=== PATIENT | male | born 1930 | race Caucasian/White ===

== ENCOUNTER → 2017-04-16 | Outpatient (CLI) | payer OTHER ==
[~2017-04-16] MED LIST: CHOL20002 PO; CLOP75TA28 PO; DOC100C PO; LISI10TA6 PO; METO-169 PO; NIAC500T71 PO; PIOG15TA46 OR; SIMV-8 PO
[2017-04-16 08:07] LABS: Urine Bilirubin Negative (Negative); Urine Color Yellow (Yellow); Urine Glucose Normal (Normal); Urine Ketone Negative (Negative); Urine Nitrite Negative (Negative); Urine RBC 54 /hpf (0 - 3); Urine Squamous Epithelial Cell FEW /hpf (<5); Urine Urobilinogen Normal (Negative); Urine pH 5.5 (5.0-8.0)
[2017-04-16 08:08] LABS: Basophils # (auto) 0.1 uL; Basophils % (auto) 0.7 % (0.0-2.0); CONDITION Y; Eosinophils # (auto) 0.3 uL; Eosinophils % (auto) 3.2 % (0.0-7.0); Hematocrit 44.1 % (41.0-53.0); Hemoglobin 15.2 g/dL (13.5-17.5); Lymphocytes # (auto) 2.3 uL; Lymphocytes % (auto) 28.6 % (10.0-50.0); Mean Corpuscular Hemoglobin 31.5 pg (28.0-32.0); Mean Corpuscular Hgb Conc. 34.5 g/dL (32.0-36.0); Mean Corpuscular Volume 91.3 fL (80.0-100.0); Mean Platelet Volume 8.9 fL (7.4-10.4); Monocytes # (auto) 0.7 uL; Monocytes % (auto) 8.8 % (0.0-12.0); Neutrophils # (auto) 4.8 uL; Neutrophils % (auto) 58.7 % (37.0-80.0); Platelet Count (auto) 288 10^3/uL (140-450); Red Cell Distribution Width 14.2 % (11.6-16.0); Urine Blood 1+ /uL (Negative); White Blood Cell 8.1 10^3/uL (4.4-10.8)
[2017-04-16 08:39] LABS: Albumin 3.6 g/dL (3.4-5.0); Calcium 8.8 mg/dL (8.5-10.1); Potassium 4.1 mmol/L (3.5-5.1)
[2017-04-16 08:43] LABS: BUN/Creatinine Ratio 21.6; Bilirubin, Total 0.8 mg/dL (0.2-1.0)
[2017-04-16 08:44] LABS: Total Protein 7.7 g/dL (6.4-8.2)
== END | disposition home or self-care (01) ==
LOC: LAB 07:30
PROVIDERS: ATTEND Family Medicine
DX: E11.8 Type 2 diabetes mellitus with unspecified complications (principal)
CPT/HCPCS: 36415; 80053; 80061; 81001; 82043; 83036; 85025

== ENCOUNTER → 2018-01-19 | Outpatient (CLI) | payer OTHER ==
[~2018-01-19] VITALS: Ht 170.2 cm; Wt 93.9 kg
[~2018-01-19] MED LIST changes: +ADENOSINE 79 MG in GIVE UN-DILUTED 0 ML IV STA; +OPTISON 3ml Vial for INJ IV ONE
[2018-01-19 10:45] VITALS: BP 156/78
== END | disposition home or self-care (01) ==
LOC: XY 08:43
PROVIDERS: ATTEND Internal Medicine
DX: I25.10 Atherosclerotic heart disease of native coronary artery without angina pectoris (principal); E11.22 Type 2 diabetes mellitus with diabetic chronic kidney disease; I12.9 Hypertensive chronic kidney disease with stage 1 through stage 4 chronic kidney disease, or unspecified chronic kidney disease; N18.2 Chronic kidney disease, stage 2 (mild); E78.5 Hyperlipidemia, unspecified
CPT/HCPCS: 93017; 93306; J0153; Q9956

== ENCOUNTER → 2018-02-03 | Outpatient (CLI) | payer OTHER ==
[~2018-02-03] MED LIST changes: -ADENOSINE 79 MG in GIVE UN-DILUTED 0 ML IV STA; -OPTISON 3ml Vial for INJ IV ONE
[2018-02-03 08:11] LABS: Basophils # (auto) 0.1 uL; Basophils % (auto) 0.7 % (0.0-2.0); Eosinophils # (auto) 0.2 uL; Eosinophils % (auto) 2.7 % (0.0-7.0); Hematocrit 44.7 % (41.0-53.0); Hemoglobin 14.9 g/dL (13.5-17.5); Lymphocytes # (auto) 2.3 uL; Lymphocytes % (auto) 27.6 % (10.0-50.0); Mean Corpuscular Hemoglobin 30.9 pg (28.0-32.0); Mean Corpuscular Hgb Conc. 33.4 g/dL (32.0-36.0); Mean Corpuscular Volume 92.6 fL (80.0-100.0); Monocytes # (auto) 0.8 uL; Monocytes % (auto) 9.4 % (0.0-12.0); Neutrophils % (auto) 59.6 % (37.0-80.0); Platelet Count (auto) 267 10^3/uL (140-450); Red Blood Cells 4.82 10^6/uL (4.5-5.90); Red Cell Distribution Width 13.6 % (11.8-14.3); White Blood Cell 8.4 10^3/uL (4.4-10.8)
[2018-02-03 08:22] LABS: Urine Bacteria FEW /hpf (None Seen); Urine Blood TRACE /uL (Negative); Urine Mucus FEW (None Seen); Urine Specific Gravity 1.013 (1.001-1.035); Urine WBC 17 /hpf (0 - 3)
[2018-02-03 08:32] LABS: Albumin 3.6 g/dL (3.4-5.0); BUN/Creatinine Ratio 16.5; Bilirubin, Total 0.6 mg/dL (0.2-1.0); CRP High Sensitivity 0.59 mg/dL (< 0.3); Calcium 9.1 mg/dL (8.5-10.1); Potassium 4.4 mmol/L (3.5-5.1); Total Protein 7.8 g/dL (6.4-8.2)
[2018-02-03 08:37] LABS: Free T4 (Free Thyroxine) 1.16 ng/dL (0.89-1.76); Prostate Specific Antigen 0.21 ng/mL (0.0-4.0); T3 Total 1.18 ng/mL (0.60-1.81)
== END | disposition home or self-care (01) ==
LOC: LAB 07:16
PROVIDERS: ATTEND Internal Medicine
DX: I25.10 Atherosclerotic heart disease of native coronary artery without angina pectoris (principal); I12.9 Hypertensive chronic kidney disease with stage 1 through stage 4 chronic kidney disease, or unspecified chronic kidney disease; E11.22 Type 2 diabetes mellitus with diabetic chronic kidney disease; N18.2 Chronic kidney disease, stage 2 (mild); E78.5 Hyperlipidemia, unspecified
CPT/HCPCS: 36415; 80053; 80061; 81001; 82306; 82607; 83036; 84153; 84403; 84439; 84443; 84480; 85025; 86141

== ENCOUNTER → 2018-03-16 | Outpatient (CLI) | payer OTHER | END | disposition home or self-care (01) | LOC: XY 09:28 | PROVIDERS: ATTEND Internal Medicine | DX: I10 Essential (primary) hypertension (principal); I12.9 Hypertensive chronic kidney disease with stage 1 through stage 4 chronic kidney disease, or unspecified chronic kidney disease; E11.22 Type 2 diabetes mellitus with diabetic chronic kidney disease; N18.2 Chronic kidney disease, stage 2 (mild) | CPT/HCPCS: 93886 ==

== ENCOUNTER → 2019-01-04 | Outpatient (CLI) | payer OTHER ==
[~2019-01-04] MED LIST changes: -PIOG15TA46 OR; +PIOG1TAB36 OR
[2019-01-04 08:01] LABS: Basophils # (auto) 0.1 uL; Basophils % (auto) 1.2 % (0.0-2.0); Eosinophils # (auto) 0.2 uL; Eosinophils % (auto) 2.3 % (0.0-7.0); Hematocrit 45.8 % (41.0-53.0); Hemoglobin 15.6 g/dL (13.5-17.5); Lymphocytes # (auto) 2.4 uL; Lymphocytes % (auto) 29.6 % (10.0-50.0); Mean Corpuscular Hemoglobin 31.6 pg (28.0-32.0); Mean Corpuscular Hgb Conc. 34.1 g/dL (32.0-36.0); Mean Corpuscular Volume 92.6 fL (80.0-100.0); Monocytes # (auto) 0.7 uL; Monocytes % (auto) 8.6 % (0.0-12.0); Neutrophils # (auto) 4.8 uL; Neutrophils % (auto) 58.3 % (37.0-80.0); Nucleated Red Blood Cells % 0.1 %; Platelet Count (auto) 255 10^3/uL (140-450); Red Blood Cells 4.95 10^6/uL (4.5-5.90); Red Cell Distribution Width 13.2 % (11.8-14.3); White Blood Cell 8.2 10^3/uL (4.4-10.8)
[2019-01-04 08:13] LABS: Urine Bacteria FEW /hpf (None Seen); Urine Blood 2+ /uL (Negative); Urine Specific Gravity 1.017 (1.001-1.035); Urine WBC 741 /hpf (0 - 3); Urine WBC Clumps PRESENT /hpf (None Seen)
[2019-01-04 08:34] LABS: Albumin 3.8 g/dL (3.4-5.0); Potassium 4.1 mmol/L (3.5-5.1)
[2019-01-04 08:39] LABS: Bilirubin, Total 0.7 mg/dL (0.2-1.0); Total Protein 8.1 g/dL (6.4-8.2)
== END | disposition home or self-care (01) ==
LOC: LAB 07:20
PROVIDERS: ATTEND Physician Assistant
DX: I13.0 Hypertensive heart and chronic kidney disease with heart failure and stage 1 through stage 4 chronic kidney disease, or unspecified chronic kidney disease (principal); E11.22 Type 2 diabetes mellitus with diabetic chronic kidney disease; N18.2 Chronic kidney disease, stage 2 (mild); I50.9 Heart failure, unspecified; E11.620 Type 2 diabetes mellitus with diabetic dermatitis; E78.5 Hyperlipidemia, unspecified
CPT/HCPCS: 36415; 80053; 80061; 81001; 83036; 85025

== ENCOUNTER → 2019-05-11 | Outpatient (CLI) | payer OTHER ==
[2019-05-11 08:56] LABS: Cholesterol 152 mg/dL (< 200); HDL Cholesterol 31 mg/dL (40-59); LDL Cholesterol 75 mg/dL (< 100); Triglycerides 367 mg/dL (< 150)
== END | disposition home or self-care (01) ==
LOC: LAB 07:23
PROVIDERS: ATTEND Physician Assistant
DX: Z12.5 Encounter for screening for malignant neoplasm of prostate (principal); E78.1 Pure hyperglyceridemia; E78.5 Hyperlipidemia, unspecified
CPT/HCPCS: 36415; 80061; 84153

== ENCOUNTER → 2019-11-16 | Outpatient (CLI) | payer OTHER ==
[2019-11-16 08:28] LABS: Basophils # (auto) 0.1 uL; Basophils % (auto) 0.8 % (0.0-2.0); Eosinophils # (auto) 0.3 uL; Eosinophils % (auto) 4.3 % (0.0-7.0); Hematocrit 44.5 % (41.0-53.0); Hemoglobin 15.2 g/dL (13.5-17.5); Lymphocytes # (auto) 2.3 uL; Lymphocytes % (auto) 29.5 % (10.0-50.0); Mean Corpuscular Hemoglobin 31.6 pg (28.0-32.0); Mean Corpuscular Hgb Conc. 34.1 g/dL (32.0-36.0); Mean Corpuscular Volume 92.8 fL (80.0-100.0); Monocytes # (auto) 0.7 uL; Monocytes % (auto) 9.1 % (0.0-12.0); Neutrophils # (auto) 4.4 uL; Neutrophils % (auto) 56.3 % (37.0-80.0); Platelet Count (auto) 303 10^3/uL (140-450); Red Cell Distribution Width 13.6 % (11.8-14.3); White Blood Cell 7.8 10^3/uL (4.4-10.8)
[2019-11-16 09:00] LABS: Potassium 4.2 mmol/L (3.5-5.1)
[2019-11-16 09:12] LABS: Albumin 3.6 g/dL (3.4-5.0); BUN/Creatinine Ratio 15.3; Bilirubin, Total 0.6 mg/dL (0.2-1.0); Calcium 9.3 mg/dL (8.5-10.1); Total Protein 8.2 g/dL (6.4-8.2)
[2019-11-16 11:54] LABS: Urine Bacteria FEW /hpf (None Seen); Urine Blood 1+ /uL (Negative); Urine Budding Yeast OCCASIONAL /hpf (None Seen); Urine Mucus FEW (None Seen); Urine WBC 1880 /hpf (0 - 3); Urine WBC Clumps PRESENT /hpf (None Seen)
== END | disposition home or self-care (01) ==
LOC: LAB 07:55
PROVIDERS: ATTEND Physician Assistant
DX: E11.9 Type 2 diabetes mellitus without complications (principal); E78.5 Hyperlipidemia, unspecified; E78.1 Pure hyperglyceridemia; I13.0 Hypertensive heart and chronic kidney disease with heart failure and stage 1 through stage 4 chronic kidney disease, or unspecified chronic kidney disease; I50.9 Heart failure, unspecified
CPT/HCPCS: 36415; 80053; 80061; 81001; 83036; 85025

== ENCOUNTER 2020-01-03 09:36 | Emergency (ER) | payer OTHER ==
[~2020-01-03] VITALS: Ht 180.3 cm; Wt 95.3 kg
[2020-01-03 10:10] VITALS: BP 148/79
[2020-01-03] MEDS ORDERED: cefTRIAXone SOD 1,000 MG VL IM ONE (11:30)
== END 2020-01-03 11:36 | disposition home or self-care (01) ==
LOC: EDBD 09:36 → ER 09:36
DX: H10.9 Unspecified conjunctivitis (principal); H00.031 Abscess of right upper eyelid; E11.9 Type 2 diabetes mellitus without complications; I10 Essential (primary) hypertension
CPT/HCPCS: 70486; 96372; 99284; J0696

== ENCOUNTER → 2020-11-23 | Outpatient (CLI) | payer OTHER ==
[~2020-11-23] MED LIST changes: +LISI-648 PO; -LISI10TA6 PO
[2020-11-23 08:01] LABS: Basophils # (auto) 0 10 ^3/uL (0-0.2); Basophils % (auto) 0.6 % (0.0-2.0); Eosinophils # (auto) 0.1 10 ^3/uL (0-0.8); Eosinophils % (auto) 1.5 % (0.0-7.0); Hematocrit 44.6 % (41.0-53.0); Lymphocytes # (auto) 1.7 10 ^3/uL (0.4-5.4); Lymphocytes % (auto) 21.6 % (10.0-50.0); Mean Corpuscular Hemoglobin 31.1 pg (28.0-32.0); Mean Corpuscular Hgb Conc. 33.6 g/dL (32.0-36.0); Mean Corpuscular Volume 92.4 fL (80.0-100.0); Monocytes # (auto) 0.6 10 ^3/uL (0-1.3); Neutrophils # (auto) 5.4 10 ^3/uL (1.6-8.6); Neutrophils % (auto) 68.3 % (37.0-80.0); Nucleated Red Blood Cells % 0.2 %; Platelet Count (auto) 336 10^3/uL (140-450); Red Blood Cells 4.83 10^6/uL (4.5-5.90); Red Cell Distribution Width 13.9 % (11.8-14.3); White Blood Cell 7.9 10^3/uL (4.4-10.8)
[2020-11-23 08:22] LABS: Potassium 3.9 mmol/L (3.5-5.1)
[2020-11-23 08:35] LABS: Albumin 3.6 g/dL (3.4-5.0); BUN/Creatinine Ratio 18.9; Bilirubin, Total 0.6 mg/dL (0.2-1.0); Calcium 9.5 mg/dL (8.5-10.1); Total Protein 8.3 g/dL (6.4-8.2)
== END | disposition home or self-care (01) ==
LOC: LAB 07:25
PROVIDERS: ATTEND Physician Assistant
DX: I13.0 Hypertensive heart and chronic kidney disease with heart failure and stage 1 through stage 4 chronic kidney disease, or unspecified chronic kidney disease (principal); I50.9 Heart failure, unspecified; E11.22 Type 2 diabetes mellitus with diabetic chronic kidney disease; N18.2 Chronic kidney disease, stage 2 (mild); E11.620 Type 2 diabetes mellitus with diabetic dermatitis; E78.5 Hyperlipidemia, unspecified; N40.0 Benign prostatic hyperplasia without lower urinary tract symptoms
CPT/HCPCS: 36415; 80053; 80061; 84153; 85025

== ENCOUNTER → 2021-04-24 | Outpatient (CLI) | payer OTHER ==
[~2021-04-24] MED LIST changes: -LISI-648 PO; +LISI-716 PO; -METO-169 PO; +METO-289 PO
[2021-04-24 08:03] LABS: Potassium 4.1 mmol/L (3.5-5.1)
[2021-04-24 08:11] LABS: Albumin 3.5 g/dL (3.4-5.0); BUN/Creatinine Ratio 18.3; Bilirubin, Total 0.7 mg/dL (0.2-1.0); Calcium 8.8 mg/dL (8.5-10.1); Total Protein 7.8 g/dL (6.4-8.2)
== END | disposition home or self-care (01) ==
LOC: LAB 07:09
PROVIDERS: ATTEND Internal Medicine
DX: E78.5 Hyperlipidemia, unspecified (principal)
CPT/HCPCS: 36415; 80053; 80061

== ENCOUNTER → 2021-05-01 | Outpatient (CLI) | payer OTHER | END | disposition home or self-care (01) | LOC: XYW 09:39 | PROVIDERS: ATTEND Internal Medicine | DX: I51.7 Cardiomegaly (principal); I31.3 Pericardial effusion (noninflammatory); I25.10 Atherosclerotic heart disease of native coronary artery without angina pectoris | CPT/HCPCS: 93306 ==

== ENCOUNTER 2021-06-05 08:37 | Inpatient (IN) | payer OTHER ==
[~2021-06-05] VITALS: Ht 172.7 cm; Wt 89.4 kg
[2021-06-05] MEDS ORDERED: SODIUM CHLORIDE 0.9% 1,000 ML IV ONE (10:00)
[2021-06-05 10:26] LABS: Basophils # (auto) 0 10 ^3/uL (0-0.2); Basophils % (auto) 0.3 % (0.0-2.0); Eosinophils # (auto) 0 10 ^3/uL (0-0.8); Eosinophils % (auto) 0.2 % (0.0-7.0); Hematocrit 45.1 % (41.0-53.0); Hemoglobin 15.5 g/dL (13.5-17.5); Lymphocytes # (auto) 1.5 10 ^3/uL (0.4-5.4); Lymphocytes % (auto) 10.8 % (10.0-50.0); Mean Corpuscular Hgb Conc. 34.4 g/dL (32.0-36.0); Mean Corpuscular Volume 93.3 fL (80.0-100.0); Monocytes # (auto) 0.8 10 ^3/uL (0-1.3); Monocytes % (auto) 5.7 % (0.0-12.0); Neutrophils # (auto) 11.5 10 ^3/uL (1.6-8.6); Nucleated Red Blood Cells % 0.1 %; Red Blood Cells 4.84 10^6/uL (4.5-5.90); Red Cell Distribution Width 13.7 % (11.8-14.3); White Blood Cell 13.8 10^3/uL (4.4-10.8)
[2021-06-05 10:31] LABS: INR 1.04 (0.9-1.15); Partial Thromboplastin Time 28.8 sec (23.6-33.0)
[2021-06-05 10:42] LABS: Albumin 3.4 g/dL (3.4-5.0); Calcium 8.8 mg/dL (8.5-10.1); Magnesium 2.1 mg/dL (1.6-2.6); Potassium 4.6 mmol/L (3.5-5.1)
[2021-06-05 10:50] LABS: BUN/Creatinine Ratio 18.8; Total Protein 7.8 g/dL (6.4-8.2)
[2021-06-05] MEDS ORDERED: IPRATROPIUM BROM 0.5 MG/2.5ML INH SOL NEB ONE (13:45)
[2021-06-05] MEDS ORDERED: SPIRONOLACTONE 25 MG TAB PO ONE (13:45)
[2021-06-05] MEDS ORDERED: FUROSEMIDE 40 MG/4 ML VIAL IV ONE ×2 (13:45→20:15)
[2021-06-05] MEDS ORDERED: ALBUTEROL SULF 2.5 MG/0.5ML(0.5%) NEB SOLN NEB ONE (13:45)
[2021-06-05] MEDS ORDERED: HYDROcodone-ACET 5/325MG TAB PO PRN (17:30)
[2021-06-05] MEDS ORDERED: DEXTROSE (50%) 50ML SYRG IV PRN (17:30)
[2021-06-05] MEDS ORDERED: NITROGLYCERIN 0.4 MG SL TAB SL PRN (17:30)
[2021-06-05] MEDS ORDERED: MORPHINE SULFATE INJECTION 2 MG/ML SYRG IV PRN ×2 (17:30)
[2021-06-05] MEDS ORDERED: ONDANSETRON HCL 4 MG/2 ML VIAL IV PRN (17:30)
[2021-06-05] MEDS ORDERED: ACETAMINOPHEN 500 MG TAB PO PRN (17:30)
[2021-06-05 17:31] LABS: Urine Bacteria FEW /hpf (None Seen); Urine Blood Negative /uL (Negative); Urine Hyaline Cast FEW /lpf (0 - 2); Urine Mucus FEW (None Seen); Urine Specific Gravity 1.018 (1.001-1.035); Urine WBC 3 /hpf (0 - 3)
[2021-06-05] MEDS ORDERED: MAGNESIUM SULFATE 1GM/100ML 100 ML IV ONE (18:30)
[2021-06-05] MEDS: cefTRIAXone 1GM/50ML D5W 50 ML IV SCH (18:50)
[2021-06-05] MEDS ORDERED: POTASSIUM CHL 20 Meq TABLET PO ONE (20:15)
[2021-06-05] MEDS ORDERED: METOPROLOL SUCCINATE XL 50 MG TAB PO ONE (20:15)
[2021-06-05] MEDS ORDERED: ATORVASTATIN 20 MG TAB PO SCH (22:00)
[2021-06-05] MEDS: ACCU-CHEK COMFORT CURVE STRIP VI SCH (22:30)
[2021-06-05] MEDS: SACUBITRIL-VALSARTAN 24mg/26mg TAB PO SCH (22:30)
[2021-06-05] MEDS: CARVEDILOL 3.125 MG TAB PO SCH (22:30)
[2021-06-05] MEDS: InsuLIN REG 1unit/0.01ml Soln (100units/ml) SC SCH (22:30)
[2021-06-06 05:46] LABS: Basophils # (auto) 0.1 10 ^3/uL (0-0.2); Basophils % (auto) 0.5 % (0.0-2.0); Eosinophils # (auto) 0.1 10 ^3/uL (0-0.8); Eosinophils % (auto) 0.7 % (0.0-7.0); Hemoglobin 13.7 g/dL (13.5-17.5); Lymphocytes # (auto) 1.5 10 ^3/uL (0.4-5.4); Lymphocytes % (auto) 14.6 % (10.0-50.0); Mean Corpuscular Hemoglobin 31.2 pg (28.0-32.0); Mean Corpuscular Hgb Conc. 33.5 g/dL (32.0-36.0); Monocytes # (auto) 0.9 10 ^3/uL (0-1.3); Monocytes % (auto) 8.2 % (0.0-12.0); Neutrophils # (auto) 7.9 10 ^3/uL (1.6-8.6); Nucleated Red Blood Cells % 0.1 %; Red Cell Distribution Width 13.6 % (11.8-14.3); White Blood Cell 10.4 10^3/uL (4.4-10.8)
[2021-06-06 06:03] LABS: INR 1.06 (0.9-1.15)
[2021-06-06 06:33] LABS: Calcium 8.9 mg/dL (8.5-10.1); Potassium 4.1 mmol/L (3.5-5.1)
[2021-06-06] MEDS: ACCU-CHEK COMFORT CURVE STRIP VI SCH ×4 (06:56→22:23)
[2021-06-06] MEDS: InsuLIN REG 1unit/0.01ml Soln (100units/ml) SC SCH ×4 (06:57→22:24)
[2021-06-06] MEDS ORDERED: HEPARIN SODIUM (PORCINE) 5000 UNITS/ML 1ML VIAL IV ONE ×2 (09:00→20:45)
[2021-06-06] MEDS ORDERED: DOBUTamine 1000MCG/ML 250 ML IV ONE (09:05)
[2021-06-06] MEDS ORDERED: DOBUTamine 1000MCG/ML 100 ML IV ONE (09:30)
[2021-06-06] MEDS ORDERED: ATROPINE SULF 0.5 MG/5ML SYR ONE (09:35)
[2021-06-06 10:00] VITALS: BP 111/73
[2021-06-06] MEDS ORDERED: METOPROLOL SUCCINATE XL 50 MG TAB PO SCH (10:00)
[2021-06-06] MEDS: cefTRIAXone 1GM/50ML D5W 50 ML IV SCH (10:08)
[2021-06-06] MEDS ORDERED: ACETYLCYSTEINE ORAL for CIN 20%(200MG/ML) 4ML PO ONE (10:15)
[2021-06-06 10:45] LABS: Basophils # (auto) 0.1 10 ^3/uL (0-0.2); Basophils % (auto) 0.5 % (0.0-2.0); Eosinophils # (auto) 0.1 10 ^3/uL (0-0.8); Eosinophils % (auto) 0.6 % (0.0-7.0); Hematocrit 43.7 % (41.0-53.0); Hemoglobin 14.6 g/dL (13.5-17.5); Lymphocytes # (auto) 1.7 10 ^3/uL (0.4-5.4); Lymphocytes % (auto) 16.3 % (10.0-50.0); Mean Corpuscular Hgb Conc. 33.4 g/dL (32.0-36.0); Mean Corpuscular Volume 92.8 fL (80.0-100.0); Monocytes % (auto) 8.9 % (0.0-12.0); Neutrophils # (auto) 7.9 10 ^3/uL (1.6-8.6); Neutrophils % (auto) 73.7 % (37.0-80.0); Nucleated Red Blood Cells % 0.1 %; Red Blood Cells 4.71 10^6/uL (4.5-5.90); Red Cell Distribution Width 13.5 % (11.8-14.3); White Blood Cell 10.7 10^3/uL (4.4-10.8)
[2021-06-06] MEDS: HEPARIN DRIP/D5W 100UNITS/ML 250 ML IV SCH ×2 (10:56→11:09)
[2021-06-06] MEDS: FUROSEMIDE 20 MG/2 ML VIAL IV SCH (10:58)
[2021-06-06] MEDS: SPIRONOLACTONE 25 MG TAB PO SCH (10:59)
[2021-06-06] MEDS: AZITHROMYCIN 500MG/ 250ML 250 ML IV SCH (10:59)
[2021-06-06] MEDS: CARVEDILOL 3.125 MG TAB PO SCH ×2 (10:59→22:03)
[2021-06-06] MEDS: CLOPIDOGREL BISULFATE 75 MG TAB PO SCH (11:00)
[2021-06-06] MEDS: SACUBITRIL-VALSARTAN 24mg/26mg TAB PO SCH ×2 (11:00→22:03)
[2021-06-06] MEDS: DOBUTamine 1000MCG/ML 250 ML IV SCH (11:21)
[2021-06-06 18:44] LABS: INR 1.06 (0.9-1.15); Partial Thromboplastin Time 29.4 sec (23.6-33.0)
[2021-06-06 20:03] LABS: INR 1.06 (0.9-1.15); Partial Thromboplastin Time 34.9 sec (23.6-33.0)
[2021-06-06 22:00] VITALS: BP 153/80
[2021-06-06] MEDS: ACETYLCYSTEINE ORAL for CIN 20%(200MG/ML) 4ML PO SCH (22:02)
[2021-06-06] MEDS: ATORVASTATIN 20 MG TAB PO SCH (22:02)
[2021-06-07 03:26] LABS: Basophils # (auto) 0 10 ^3/uL (0-0.2); Basophils % (auto) 0.4 % (0.0-2.0); Eosinophils # (auto) 0 10 ^3/uL (0-0.8); Eosinophils % (auto) 0.3 % (0.0-7.0); Hematocrit 39.5 % (41.0-53.0); Hemoglobin 13.3 g/dL (13.5-17.5); Lymphocytes # (auto) 1.1 10 ^3/uL (0.4-5.4); Lymphocytes % (auto) 11.2 % (10.0-50.0); Mean Corpuscular Hemoglobin 31.5 pg (28.0-32.0); Mean Corpuscular Hgb Conc. 33.6 g/dL (32.0-36.0); Mean Corpuscular Volume 93.6 fL (80.0-100.0); Monocytes # (auto) 0.7 10 ^3/uL (0-1.3); Monocytes % (auto) 7.2 % (0.0-12.0); Neutrophils # (auto) 8.1 10 ^3/uL (1.6-8.6); Neutrophils % (auto) 80.9 % (37.0-80.0); Red Blood Cells 4.23 10^6/uL (4.5-5.90); Red Cell Distribution Width 13.4 % (11.8-14.3); White Blood Cell 9.9 10^3/uL (4.4-10.8)
[2021-06-07 04:19] LABS: BUN/Creatinine Ratio 31.3; Calcium 8.7 mg/dL (8.5-10.1); Potassium 4.1 mmol/L (3.5-5.1)
[2021-06-07 05:00] VITALS: BP 128/59
[2021-06-07] MEDS: ACCU-CHEK COMFORT CURVE STRIP VI SCH ×4 (06:44→21:30)
[2021-06-07] MEDS: InsuLIN REG 1unit/0.01ml Soln (100units/ml) SC SCH ×4 (06:44→21:31)
[2021-06-07] MEDS: DOBUTamine 1000MCG/ML 250 ML IV SCH (06:57)
[2021-06-07 07:27] LABS: INR 1.07 (0.9-1.15); Partial Thromboplastin Time 68.5 sec (23.6-33.0)
[2021-06-07 08:00] VITALS: BP 121/58
[2021-06-07] MEDS ORDERED: HEPARIN DRIP/D5W 100UNITS/ML 250 ML IV SCH (08:15)
[2021-06-07] MEDS ORDERED: LIDOCAINE 2%HCL (LOCAL ANESTH.) INJ 20ML MDV ONE (08:43)
[2021-06-07] MEDS ORDERED: IODIXANOL 320MG/ML 100ML BTL IV ONE ×6 (08:43→11:19)
[2021-06-07] MEDS ORDERED: MIDAZOLAM HCL 2MG/2ML 2ml VIAL (1mg/ml) ONE (08:46)
[2021-06-07] MEDS ORDERED: fentaNYL CITRATE 100 MCG/2 ML VL ONE (08:46)
[2021-06-07] MEDS ORDERED: HEPARIN DRIP/D5W 100UNITS/ML 250 ML IV ONE (08:52)
[2021-06-07] MEDS: cefTRIAXone 1GM/50ML D5W 50 ML IV SCH (09:00)
[2021-06-07] MEDS: ACETYLCYSTEINE ORAL for CIN 20%(200MG/ML) 4ML PO SCH ×2 (10:00→21:29)
[2021-06-07] MEDS: SACUBITRIL-VALSARTAN 24mg/26mg TAB PO SCH ×2 (10:00→21:14)
[2021-06-07] MEDS: AZITHROMYCIN 500MG/ 250ML 250 ML IV SCH (10:00)
[2021-06-07] MEDS: CLOPIDOGREL BISULFATE 75 MG TAB PO SCH (10:00)
[2021-06-07] MEDS: SPIRONOLACTONE 25 MG TAB PO SCH (10:00)
[2021-06-07] MEDS: CARVEDILOL 3.125 MG TAB PO SCH ×2 (10:00→21:15)
[2021-06-07] MEDS: FUROSEMIDE 20 MG/2 ML VIAL IV SCH (10:00)
[2021-06-07] MEDS ORDERED: HEPARIN SODIUM (PORCINE) 5000 UNITS/ML 1ML VIAL ONE (10:06)
[2021-06-07] MEDS ORDERED: NITROGLYCERIN 5MG/ML 10ML VIAL IV ONE (10:57)
[2021-06-07] MEDS ORDERED: VERAPAMIL 2.5MG/ML INJ 2ML VIAL IV ONE (10:57)
[2021-06-07] MEDS ORDERED: diphenhdrAMINE HCL 50 MG/1 ML VL ONE (11:06)
[2021-06-07] MEDS ORDERED: LIDOCAINE W/ EPINEPHRINE 2% INJ 20ML VIAL ONE (11:21)
[2021-06-07] MEDS ORDERED: ATROPINE SULF 1 MG/10ml SYR ONE (11:21)
[2021-06-07] MEDS ORDERED: EPINEPHrine HCL 1 MG/10 ML SYRG ONE (11:22)
[2021-06-07] MEDS ORDERED: TICAGRELOR 90 MG TAB ONE (12:07)
[2021-06-07] MEDS ORDERED: FUROSEMIDE 20 MG/2 ML VIAL ONE ×2 (12:17→12:38)
[2021-06-07] MEDS ORDERED: CLOPIDOGREL 300 MG TAB PO ONE (14:00)
[2021-06-07 15:34] LABS: INR 1.05 (0.9-1.15); Partial Thromboplastin Time 32.7 sec (23.6-33.0)
[2021-06-07] MEDS: ATORVASTATIN 20 MG TAB PO SCH (21:14)
[2021-06-07 22:00] VITALS: BP 118/55
[2021-06-07] MEDS ORDERED: TICAGRELOR 90 MG TAB PO SCH (22:00)
[2021-06-08] MEDS: DOBUTamine 1000MCG/ML 250 ML IV SCH ×2 (03:54→23:30)
[2021-06-08 05:00] VITALS: BP 114/50
[2021-06-08 06:17] LABS: BUN/Creatinine Ratio 25.5; Calcium 8.3 mg/dL (8.5-10.1); Potassium 3.8 mmol/L (3.5-5.1)
[2021-06-08] MEDS: ACCU-CHEK COMFORT CURVE STRIP VI SCH ×4 (06:38→22:28)
[2021-06-08] MEDS: InsuLIN REG 1unit/0.01ml Soln (100units/ml) SC SCH ×4 (06:39→21:30)
[2021-06-08 08:54] VITALS: BP 121/56
[2021-06-08] MEDS: CARVEDILOL 3.125 MG TAB PO SCH ×2 (10:00→22:28)
[2021-06-08] MEDS: FUROSEMIDE 20 MG/2 ML VIAL IV SCH (10:00)
[2021-06-08] MEDS: SPIRONOLACTONE 25 MG TAB PO SCH (10:00)
[2021-06-08] MEDS: cefTRIAXone 1GM/50ML D5W 50 ML IV SCH (11:17)
[2021-06-08] MEDS: ASPirin-EC 81 mg tab PO SCH (11:21)
[2021-06-08] MEDS: SACUBITRIL-VALSARTAN 24mg/26mg TAB PO SCH ×2 (11:21→22:28)
[2021-06-08] MEDS: AZITHROMYCIN 500MG/ 250ML 250 ML IV SCH (11:21)
[2021-06-08] MEDS: TICAGRELOR 90 MG TAB PO SCH ×2 (11:21→22:28)
[2021-06-08 13:00] VITALS: BP 104/65
[2021-06-08 17:00] VITALS: BP 103/60
[2021-06-08 20:00] VITALS: BP 114/66
[2021-06-08 22:00] VITALS: BP 114/66
[2021-06-08] MEDS: ATORVASTATIN 20 MG TAB PO SCH (22:28)
[2021-06-09] VITALS (7 sets, daily range): BP systolic 91–121; BP diastolic 54–68
[2021-06-09 05:35] LABS: Basophils # (auto) 0 10 ^3/uL (0-0.2); Basophils % (auto) 0.3 % (0.0-2.0); Eosinophils # (auto) 0.2 10 ^3/uL (0-0.8); Eosinophils % (auto) 1.8 % (0.0-7.0); Hematocrit 40.7 % (41.0-53.0); Hemoglobin 13.6 g/dL (13.5-17.5); Lymphocytes # (auto) 0.9 10 ^3/uL (0.4-5.4); Lymphocytes % (auto) 8.6 % (10.0-50.0); Mean Corpuscular Hemoglobin 30.9 pg (28.0-32.0); Mean Corpuscular Hgb Conc. 33.4 g/dL (32.0-36.0); Mean Corpuscular Volume 92.3 fL (80.0-100.0); Monocytes # (auto) 1.1 10 ^3/uL (0-1.3); Monocytes % (auto) 10.3 % (0.0-12.0); Neutrophils # (auto) 8.4 10 ^3/uL (1.6-8.6); Nucleated Red Blood Cells % 0.1 %; Red Blood Cells 4.41 10^6/uL (4.5-5.90); White Blood Cell 10.6 10^3/uL (4.4-10.8)
[2021-06-09 05:49] LABS: Potassium 4.1 mmol/L (3.5-5.1)
[2021-06-09 05:56] LABS: Albumin 2.5 g/dL (3.4-5.0); BUN/Creatinine Ratio 15.6; Bilirubin, Total 0.8 mg/dL (0.2-1.0); Calcium 8.3 mg/dL (8.5-10.1); Total Protein 6.7 g/dL (6.4-8.2)
[2021-06-09] MEDS: ACCU-CHEK COMFORT CURVE STRIP VI SCH ×4 (07:11→22:00)
[2021-06-09] MEDS: InsuLIN REG 1unit/0.01ml Soln (100units/ml) SC SCH ×4 (07:12→22:00)
[2021-06-09] MEDS: cefTRIAXone 1GM/50ML D5W 50 ML IV SCH (09:44)
[2021-06-09] MEDS: FUROSEMIDE 20 MG/2 ML VIAL IV SCH (09:45)
[2021-06-09] MEDS: SPIRONOLACTONE 25 MG TAB PO SCH (09:46)
[2021-06-09] MEDS: SACUBITRIL-VALSARTAN 24mg/26mg TAB PO SCH ×2 (09:46→22:47)
[2021-06-09] MEDS: ASPirin-EC 81 mg tab PO SCH (09:47)
[2021-06-09] MEDS: CARVEDILOL 3.125 MG TAB PO SCH ×2 (09:47→22:48)
[2021-06-09] MEDS: AZITHROMYCIN 500MG/ 250ML 250 ML IV SCH (09:48)
[2021-06-09] MEDS: TICAGRELOR 90 MG TAB PO SCH ×2 (10:08→22:47)
[2021-06-09] MEDS ORDERED: SODIUM CHLORIDE 0.9% 500 ML IV ONE (14:15)
[2021-06-09] MEDS ORDERED: ALBUTEROL SULF 2.5 MG/0.5ML(0.5%) NEB SOLN NEB PRN (14:30)
[2021-06-09] MEDS ORDERED: DOPamine 1600MCG/ML D5W 250 ML IV SCH (15:15)
[2021-06-09] MEDS: SODIUM CHLORIDE 0.9% 1,000 ML IV SCH ×2 (15:37→18:02)
[2021-06-09] MEDS: ALBUTEROL SULF 2.5 MG/0.5ML(0.5%) NEB SOLN NEB SCH (18:14)
[2021-06-09 18:22] LABS: Creatinine, Urine 139 mg/dL (30.0-125.0); Sodium Urine 52 mmol/L (40-220)
[2021-06-09 18:31] LABS: Protein, Urine 499.8 mg/dL (0.0-11.9)
[2021-06-09] MEDS: ATORVASTATIN 20 MG TAB PO SCH (22:48)
[2021-06-10] MEDS: ALBUTEROL SULF 2.5 MG/0.5ML(0.5%) NEB SOLN NEB SCH ×4 (00:25→18:45)
[2021-06-10] MEDS: SODIUM CHLORIDE 0.9% 1,000 ML IV SCH ×3 (01:15→18:56)
[2021-06-10 05:00] VITALS: BP 107/57
[2021-06-10 05:55] LABS: Basophils # (auto) 0.1 10 ^3/uL (0-0.2); Basophils % (auto) 0.6 % (0.0-2.0); Eosinophils # (auto) 0.2 10 ^3/uL (0-0.8); Eosinophils % (auto) 1.7 % (0.0-7.0); Hematocrit 38.4 % (41.0-53.0); Hemoglobin 13.4 g/dL (13.5-17.5); Lymphocytes # (auto) 0.9 10 ^3/uL (0.4-5.4); Lymphocytes % (auto) 8.7 % (10.0-50.0); Mean Corpuscular Hemoglobin 32.2 pg (28.0-32.0); Mean Corpuscular Hgb Conc. 34.8 g/dL (32.0-36.0); Mean Corpuscular Volume 92.5 fL (80.0-100.0); Monocytes # (auto) 1.1 10 ^3/uL (0-1.3); Monocytes % (auto) 10.5 % (0.0-12.0); Neutrophils # (auto) 7.9 10 ^3/uL (1.6-8.6); Neutrophils % (auto) 78.5 % (37.0-80.0); Red Blood Cells 4.15 10^6/uL (4.5-5.90); White Blood Cell 10.1 10^3/uL (4.4-10.8)
[2021-06-10 06:32] LABS: Albumin 2.5 g/dL (3.4-5.0); BUN/Creatinine Ratio 12.7; Magnesium 2.3 mg/dL (1.6-2.6); Potassium 4.3 mmol/L (3.5-5.1)
[2021-06-10 06:34] LABS: Bilirubin, Total 0.5 mg/dL (0.2-1.0); Total Protein 6.9 g/dL (6.4-8.2)
[2021-06-10] MEDS: ACCU-CHEK COMFORT CURVE STRIP VI SCH ×4 (06:56→21:45)
[2021-06-10] MEDS: InsuLIN REG 1unit/0.01ml Soln (100units/ml) SC SCH ×4 (06:57→21:46)
[2021-06-10 09:00] VITALS: BP 121/66
[2021-06-10] MEDS ORDERED: FUROSEMIDE 20 MG/2 ML VIAL IV SCH (10:00)
[2021-06-10] MEDS ORDERED: AMIODARONE HCL 200 MG TAB PO ONE (12:00)
[2021-06-10] MEDS: ASPirin-EC 81 mg tab PO SCH (12:21)
[2021-06-10] MEDS: TICAGRELOR 90 MG TAB PO SCH ×2 (12:21→21:44)
[2021-06-10] MEDS: CARVEDILOL 3.125 MG TAB PO SCH ×2 (12:22→21:45)
[2021-06-10] MEDS: AZITHROMYCIN 500MG/ 250ML 250 ML IV SCH (12:22)
[2021-06-10] MEDS: SPIRONOLACTONE 25 MG TAB PO SCH (12:22)
[2021-06-10] MEDS: cefTRIAXone 1GM/50ML D5W 50 ML IV SCH (12:22)
[2021-06-10 13:00] VITALS: BP 111/58
[2021-06-10] MEDS ORDERED: DOPamine 1600MCG/ML D5W 250 ML IV SCH (16:00)
[2021-06-10 16:08] LABS: Urine Bacteria FEW /hpf (None Seen); Urine Blood 3+ /uL (Negative); Urine Mucus FEW (None Seen); Urine Specific Gravity 1.026 (1.001-1.035); Urine WBC 42 /hpf (0 - 3)
[2021-06-10 17:30] VITALS: BP 99/52
[2021-06-10] MEDS: AMIODARONE HCL 200 MG TAB PO SCH (21:44)
[2021-06-10] MEDS: ATORVASTATIN 20 MG TAB PO SCH (21:45)
[2021-06-10 22:00] VITALS: BP 114/62
[2021-06-11] MEDS: ALBUTEROL SULF 2.5 MG/0.5ML(0.5%) NEB SOLN NEB SCH ×5 (00:04→23:02)
[2021-06-11 05:04] VITALS: BP 99/56
[2021-06-11] MEDS: ACCU-CHEK COMFORT CURVE STRIP VI SCH ×4 (05:58→21:25)
[2021-06-11] MEDS: InsuLIN REG 1unit/0.01ml Soln (100units/ml) SC SCH ×4 (05:58→21:42)
[2021-06-11 05:59] LABS: BUN/Creatinine Ratio 13.8; Calcium 7.8 mg/dL (8.5-10.1); Potassium 4.2 mmol/L (3.5-5.1)
[2021-06-11] MEDS: SODIUM CHLORIDE 0.9% 1,000 ML IV SCH ×2 (07:03→18:11)
[2021-06-11 09:00] VITALS: BP 127/64
[2021-06-11] MEDS: TICAGRELOR 90 MG TAB PO SCH ×2 (11:21→21:24)
[2021-06-11] MEDS: ASPirin-EC 81 mg tab PO SCH (11:21)
[2021-06-11] MEDS: AMIODARONE HCL 200 MG TAB PO SCH ×2 (11:22→21:24)
[2021-06-11] MEDS: CARVEDILOL 3.125 MG TAB PO SCH ×2 (11:23→21:25)
[2021-06-11] MEDS: FUROSEMIDE 100 MG/10ML VIAL IV SCH (11:35)
[2021-06-11 12:00] VITALS: BP 141/76
[2021-06-11 13:00] VITALS: BP 124/70
[2021-06-11 21:00] VITALS: BP 126/71
[2021-06-11] MEDS: MUPIROCIN 2% OINT 15gm or 22gm EACHNOSTRI SCH (21:24)
[2021-06-11] MEDS: ATORVASTATIN 20 MG TAB PO SCH (21:25)
[2021-06-11] MEDS ORDERED: methylPREDNISolone SOD SUCC 125 MG/2 ML VL IV ONE (23:30)
[2021-06-11] MEDS ORDERED: FUROSEMIDE 40 MG/4 ML VIAL IV ONE (23:30)
[2021-06-12] MEDS: ALBUTEROL SULF 2.5 MG/0.5ML(0.5%) NEB SOLN NEB SCH ×6 (02:27→22:21)
[2021-06-12] MEDS: SODIUM CHLORIDE 0.9% 1,000 ML IV SCH (03:21)
[2021-06-12 05:00] VITALS: BP 136/73
[2021-06-12] MEDS: ACCU-CHEK COMFORT CURVE STRIP VI SCH ×4 (05:45→22:21)
[2021-06-12] MEDS: InsuLIN REG 1unit/0.01ml Soln (100units/ml) SC SCH ×4 (06:00→22:25)
[2021-06-12 06:37] LABS: Calcium 8.4 mg/dL (8.5-10.1); Potassium 4.6 mmol/L (3.5-5.1)
[2021-06-12 06:41] LABS: BUN/Creatinine Ratio 19.1
[2021-06-12 10:00] VITALS: BP 146/80
[2021-06-12] MEDS: MUPIROCIN 2% OINT 15gm or 22gm EACHNOSTRI SCH ×2 (10:02→22:16)
[2021-06-12] MEDS: FUROSEMIDE 100 MG/10ML VIAL IV SCH (10:03)
[2021-06-12] MEDS: TICAGRELOR 90 MG TAB PO SCH ×2 (10:03→22:16)
[2021-06-12] MEDS: AMIODARONE HCL 200 MG TAB PO SCH ×2 (10:03→22:16)
[2021-06-12] MEDS: CARVEDILOL 3.125 MG TAB PO SCH ×2 (10:03→22:16)
[2021-06-12] MEDS: ASPirin-EC 81 mg tab PO SCH (10:04)
[2021-06-12] MEDS ORDERED: SODIUM BICARBONATE 8.4 % INJ 50ML VIAL IV ONE (12:45)
[2021-06-12] MEDS ORDERED: SOD CHL 0.45% 1,000 ML IV SCH (16:30)
[2021-06-12 20:00] VITALS: BP 143/73
[2021-06-12] MEDS: ATORVASTATIN 20 MG TAB PO SCH (22:17)
[2021-06-13] MEDS: ALBUTEROL SULF 2.5 MG/0.5ML(0.5%) NEB SOLN NEB SCH ×6 (02:15→22:36)
[2021-06-13 03:02] LABS: Basophils # (auto) 0.1 10 ^3/uL (0-0.2); Basophils % (auto) 0.4 % (0.0-2.0); Eosinophils # (auto) 0 10 ^3/uL (0-0.8); Hematocrit 37.8 % (41.0-53.0); Hemoglobin 12.7 g/dL (13.5-17.5); Lymphocytes # (auto) 0.6 10 ^3/uL (0.4-5.4); Lymphocytes % (auto) 3.9 % (10.0-50.0); Mean Corpuscular Hemoglobin 30.9 pg (28.0-32.0); Mean Corpuscular Hgb Conc. 33.6 g/dL (32.0-36.0); Mean Corpuscular Volume 92.1 fL (80.0-100.0); Monocytes # (auto) 1.2 10 ^3/uL (0-1.3); Monocytes % (auto) 8.7 % (0.0-12.0); Neutrophils # (auto) 12.4 10 ^3/uL (1.6-8.6); Red Blood Cells 4.11 10^6/uL (4.5-5.90); Red Cell Distribution Width 13.3 % (11.8-14.3); White Blood Cell 14.2 10^3/uL (4.4-10.8)
[2021-06-13 03:12] LABS: Albumin 2.7 g/dL (3.4-5.0); BUN/Creatinine Ratio 26.6; Calcium 8.5 mg/dL (8.5-10.1); Potassium 3.9 mmol/L (3.5-5.1)
[2021-06-13 03:15] LABS: Bilirubin, Total 0.5 mg/dL (0.2-1.0); Total Protein 6.9 g/dL (6.4-8.2)
[2021-06-13 05:00] VITALS: BP 155/71
[2021-06-13] MEDS: ACCU-CHEK COMFORT CURVE STRIP VI SCH ×4 (06:25→22:04)
[2021-06-13] MEDS: InsuLIN REG 1unit/0.01ml Soln (100units/ml) SC SCH ×4 (06:28→22:08)
[2021-06-13] MEDS ORDERED: ALBUMIN 25% 100 ML IV ONE (08:15)
[2021-06-13 09:18] VITALS: BP 152/73
[2021-06-13] MEDS: MUPIROCIN 2% OINT 15gm or 22gm EACHNOSTRI SCH ×2 (09:45→22:03)
[2021-06-13] MEDS: TICAGRELOR 90 MG TAB PO SCH ×2 (09:45→22:00)
[2021-06-13] MEDS: ASPirin-EC 81 mg tab PO SCH (09:45)
[2021-06-13] MEDS: AMIODARONE HCL 200 MG TAB PO SCH ×2 (09:45→22:03)
[2021-06-13] MEDS: CARVEDILOL 3.125 MG TAB PO SCH ×2 (09:45→21:57)
[2021-06-13 13:00] VITALS: BP 149/70
[2021-06-13 17:08] VITALS: BP 142/70
[2021-06-13 20:00] VITALS: BP 133/89
[2021-06-13 21:48] VITALS: BP 133/89
[2021-06-13] MEDS: ATORVASTATIN 20 MG TAB PO SCH (22:00)
[2021-06-13] MEDS: SACUBITRIL-VALSARTAN 24mg/26mg TAB PO SCH (22:04)
[2021-06-14] MEDS: ALBUTEROL SULF 2.5 MG/0.5ML(0.5%) NEB SOLN NEB SCH ×5 (02:57→14:46)
[2021-06-14 05:25] VITALS: BP 137/84
[2021-06-14] MEDS: InsuLIN REG 1unit/0.01ml Soln (100units/ml) SC SCH ×2 (06:10→13:20)
[2021-06-14] MEDS: ACCU-CHEK COMFORT CURVE STRIP VI SCH ×2 (06:10→11:30)
[2021-06-14 06:20] LABS: Basophils # (auto) 0 10 ^3/uL (0-0.2); Basophils % (auto) 0.3 % (0.0-2.0); Eosinophils # (auto) 0.1 10 ^3/uL (0-0.8); Eosinophils % (auto) 0.5 % (0.0-7.0); Hematocrit 34.8 % (41.0-53.0); Hemoglobin 11.6 g/dL (13.5-17.5); Lymphocytes # (auto) 0.9 10 ^3/uL (0.4-5.4); Lymphocytes % (auto) 9.1 % (10.0-50.0); Mean Corpuscular Hemoglobin 30.8 pg (28.0-32.0); Mean Corpuscular Hgb Conc. 33.3 g/dL (32.0-36.0); Mean Corpuscular Volume 92.6 fL (80.0-100.0); Monocytes # (auto) 0.9 10 ^3/uL (0-1.3); Monocytes % (auto) 9.3 % (0.0-12.0); Neutrophils # (auto) 7.8 10 ^3/uL (1.6-8.6); Neutrophils % (auto) 80.8 % (37.0-80.0); Nucleated Red Blood Cells % 0.1 %; Red Blood Cells 3.76 10^6/uL (4.5-5.90); Red Cell Distribution Width 13.1 % (11.8-14.3); White Blood Cell 9.7 10^3/uL (4.4-10.8)
[2021-06-14 06:35] LABS: Calcium 8.7 mg/dL (8.5-10.1); Potassium 3.7 mmol/L (3.5-5.1)
[2021-06-14 06:37] LABS: BUN/Creatinine Ratio 35.3
[2021-06-14 09:00] VITALS: BP 147/63
[2021-06-14] MEDS ORDERED: PANTOPRAZOLE 40 MG TAB PO SCH (10:00)
[2021-06-14] MEDS ORDERED: ALBUTEROL SULF 2.5 MG/0.5ML(0.5%) NEB SOLN NEB ONE (11:15)
[2021-06-14] MEDS ORDERED: IPRATROPIUM BROM 0.5 MG/2.5ML INH SOL NEB ONE (11:15)
[2021-06-14] MEDS: AMIODARONE HCL 200 MG TAB PO SCH (12:51)
[2021-06-14] MEDS: CARVEDILOL 3.125 MG TAB PO SCH (12:52)
[2021-06-14] MEDS: SACUBITRIL-VALSARTAN 24mg/26mg TAB PO SCH (12:58)
[2021-06-14] MEDS: ASPirin-EC 81 mg tab PO SCH (12:58)
[2021-06-14] MEDS: TICAGRELOR 90 MG TAB PO SCH (12:58)
[2021-06-14] MEDS: MUPIROCIN 2% OINT 15gm or 22gm EACHNOSTRI SCH (12:59)
[2021-06-14 13:44] VITALS: BP 147/63
[2021-06-14 14:08] VITALS: BP 146/60
== END 2021-06-14 14:30 | disposition hospice, home (50) | DRG 215 ==
LOC: EDBD 08:37 → ER 08:37 → TELE 17:21 → TELE-CENTR 06-06 22:54
PROVIDERS: ADMIT Nurse Practitioner Acute Care; ATTEND Internal Medicine
PROC: 027136Z Dilation of Coronary Artery, Two Arteries with Three Drug-eluting Intraluminal Devices, Percutaneous Approach (ICD-10-PCS; principal; 2021-06-07)
PROC: 02HA3RJ Insertion of Short-term External Heart Assist System into Heart, Intraoperative, Percutaneous Approach (ICD-10-PCS; 2021-06-07)
PROC: X2C0361 Extirpation of Matter from Coronary Artery, One Artery using Orbital Atherectomy Technology, Percutaneous Approach, New Technology Group 1 (ICD-10-PCS; 2021-06-07)
PROC: 5A02210 Assistance with Cardiac Output using Balloon Pump, Continuous (ICD-10-PCS; 2021-06-07)
PROC: 5A0221D Assistance with Cardiac Output using Impeller Pump, Continuous (ICD-10-PCS; 2021-06-07)
PROC: 4A023N7 Measurement of Cardiac Sampling and Pressure, Left Heart, Percutaneous Approach (ICD-10-PCS; 2021-06-07)
PROC: B211YZZ Fluoroscopy of Multiple Coronary Arteries using Other Contrast (ICD-10-PCS; 2021-06-07)
PROC: B215YZZ Fluoroscopy of Left Heart using Other Contrast (ICD-10-PCS; 2021-06-07)
PROC: B240ZZ3 Ultrasonography of Single Coronary Artery, Intravascular (ICD-10-PCS; 2021-06-07)
DX: I21.4 Non-ST elevation (NSTEMI) myocardial infarction (principal); I50.43 Acute on chronic combined systolic (congestive) and diastolic (congestive) heart failure; R57.0 Cardiogenic shock; E44.1 Mild protein-calorie malnutrition; D68.69 Other thrombophilia; N17.9 Acute kidney failure, unspecified; I31.3 Pericardial effusion (noninflammatory); I13.0 Hypertensive heart and chronic kidney disease with heart failure and stage 1 through stage 4 chronic kidney disease, or unspecified chronic kidney disease; I42.9 Cardiomyopathy, unspecified; J91.8 Pleural effusion in other conditions classified elsewhere; I25.10 Atherosclerotic heart disease of native coronary artery without angina pectoris; N18.31 Chronic kidney disease, stage 3a; E11.22 Type 2 diabetes mellitus with diabetic chronic kidney disease; E78.5 Hyperlipidemia, unspecified; F03.90 Unspecified dementia, unspecified severity, without behavioral disturbance, psychotic disturbance, mood disturbance, and anxiety; N14.1 Nephropathy induced by other drugs, medicaments and biological substances; T50.8X5A Adverse effect of diagnostic agents, initial encounter; Z66 Do not resuscitate; Z96.649 Presence of unspecified artificial hip joint; I48.0 Paroxysmal atrial fibrillation; Z51.5 Encounter for palliative care; Z20.822 Contact with and (suspected) exposure to COVID-19; Z79.899 Other long term (current) drug therapy; I25.2 Old myocardial infarction; Y92.89 Other specified places as the place of occurrence of the external cause; Z79.84 Long term (current) use of oral hypoglycemic drugs; Z82.49 Family history of ischemic heart disease and other diseases of the circulatory system; Z68.28 Body mass index [BMI] 28.0-28.9, adult
CPT/HCPCS: 33967; 36415; 71045; 71046; 76775; 80048; 80053; 81001; 82270; 82306; 82570; 82962; 83036; 83735; 83880; 83935; 84156; 84300; 84443; 84484; 85025; 85610; 85730; 86141; 87081; 87426; 92928; 92929; 92933; 92978; 93005; 93017; 93350; 93458; 94640; 96365; 96367; 96375; 97110; 97116; 97163; 97530; 99152; 99153; C1724; C1874; C1887; G0378; J0461; J0696; J1815; J2250; J3490; P9047; Q9967